=== PATIENT | female | born 1970 | race Caucasian/White ===

== ENCOUNTER 2017-09-22 10:02 | Emergency (ER) | payer OTHER, SELFPAY ==
[2017-09-22 10:03] VITALS: BP 114/68; PULSE 58; RESP 17; TEMP 36.6; O2SAT 95; BMI 28.8
--- NOTE | 2017-09-22 10:21 | EKG12_ITS ---
Test Reason : CP Blood Pressure : / mmHG Vent. Rate : 055 BPM Atrial Rate : 055 BPM P-R Int : 156 ms QRS Dur : 092 ms QT Int : 458 ms P-R-T Axes : 013 009 045 degrees QTc Int : 438 ms Sinus bradycardia Low voltage QRS (limb leads) Confirmed by ROSENDO MONTELONGO, AJQUELIN ([id number]), business editor MATILDE GLEZ ([id number]) on 09/23/2017 2:53:18 PM Referred By: CAROL
--- NOTE | 2017-09-22 10:25 | ED.DCSUM_ITS ---
- ER Visit Summary Date of Service: 09/22/17 Chief Complaint: Chest pain History of Present Illness: The patient is a 47 F who presents with chest pain that has been off and on for the past 2 days. Patient states the pain has been constant since she woke up this morning. Patient states the pain is over the left upper chest. Patient describes as a pressure. Patient does admit to some shortness of breath with the pain. Patient admits to some nausea but denies any vomiting. Patient states she did have an episode of diaphoresis yesterday. Patient admits to some palpitations and occasional lightheadedness. Patient also has a history of reflux. Patient did also have a recent trip to [place] 2 weeks ago. Patient denies any history of any blood clots or cancer. Cardiac risk factors include prediabetes and a family history of grandfather who had coronary artery disease at young age. Physical Examination: Vital signs are stable. Patient is afebrile. Patient is in no acute distress. Oral mucosa is pink and moist. Neck is supple. Trachea is midline. There is no JVD or lymphadenopathy noted. Heart was regular rate and rhythm. Lungs are clear and equal bilateral. There is good respiratory effort noted. There is some reproducible tenderness of the left upper chest wall and left upper thoracic paraspinal area. Abdomen is soft and nontender. Cranial nerves II through XII are intact. There are no focal motor or sensory deficits noted. The remaining physical exam is within normal limits. Test Results: EKG showed normal sinus rhythm with a rate of 55. There is no acute ST or T-wave changes noted. PA and lateral chest x-ray does not show any acute cardiopulmonary process. CBC, metabolic profile, troponin, d-dimer were obtained and were essentially within normal limits. Emergency Department Course and Treatment: Patient felt better on reevaluation. Patient still had some reproducible left upper chest pain on reevaluation. Patient was given a prescription for Naprosyn. Patient was instructed to follow -up with her primary care physician in 5-7 days. Patient understood and was agreeable with the plan. All questions were answered. Disposition: Discharged home Impression: Chest pain This note was generated with [employer] software. It may contain incorrect words, spelling, and punctuation that were not noted in review of the chart prior to signing ED Disposition - Plan for ED Patient: Disposition: Home or Assisted Living Chief Complaint: Chest Pain Diagnosis: Chest pain Instructions: ED Chest Pain Atypical Unkn Cause Prescriptions: Naproxen [Naprosyn] 500 mg PO BID PRN #20 tab [facility] [[facility] Provider] -
[2017-09-22 10:33] VITALS: O2SAT 97
--- NOTE | 2017-09-22 10:35 | RAD_ITS ---
STUDY: X-RAY CHEST REASON FOR EXAM: Female, 47 years old. Chest pain. TECHNIQUE: PA and lateral views of the chest. COMPARISON: January 11, 2017 FINDINGS: The lungs are clear and expanded. There is no demonstrated pleural abnormality. Normal size heart. Normal mediastinum and nita. Normal visualized pulmonary arteries. Normal visualized aortic arch and descending thoracic aorta. Normal visualized thoracic spine. Normal visualized ribs, clavicles, and shoulders. There is no demonstrated abnormality of the visualized soft tissue structures of the upper abdomen. RAD/Chest PA and Lateral IMPRESSION: No acute cardiopulmonary process. Electronically Signed: Malorie Rodriguez MD at 11:17 EDT Tel , Service support ,
[2017-09-22] MEDS: Aspirin 81 MG TAB.CHEW 324 MG PO (10:37)
[2017-09-22 10:53] LABS: Basophil# 0.01 X10^3/uL; Basophil% 0.2 % (0-1); Eosinophil# 0.12 X10^3/uL; Eosinophils% 1.9 % (0-5); Hematocrit 38.3 % (37-47); Hemoglobin 13.1 g/dl (12.0-15.0); Lymphocyte % 39.5 % (19-41); Mean Corp Hgb Conc 34.2 g/gl (32-36); Mean Corpuscular Hgb 32.1 pg (27.0-32.0); Mean Corpuscular Volume 93.9 fL (81-99); Monocyte# 0.68 X10^3/uL; Monocyte% 10.7 % (0-10); Neutrophil # 3.01 X10^3/uL (2.7-7.7); Neutrophil % 47.5 % (47-70); POSITIVE COUNT NO; POSITIVE DIFFERENTIAL NO; POSITIVE MORPHOLOGY NO; Platelet Count 419 K/mm3 (150-450); RBC Distribution Width CV 14.2 % (11.6-14.6); RBC Distribution Width SD 47.7 fl (35.1-43.9); Red Blood Count 4.08 M/mm3 (4.2-5.4); White Blood Count 6.3 K/mm3 (4.4-11.0)
[2017-09-22 11:02] VITALS: PULSE 56; O2SAT 98
--- NOTE | 2017-09-22 11:02 | NURSING ---
CHEMISTRIES AND DDIMER HEMOLIZED, PER [facility]
[2017-09-22 12:11] LABS: Anion Gap 10 (5-15); BUN 16 mg/dL (7-18); BUN/Creat Ratio 29.9 RATIO (10-20); Calcium,Total 8.7 mg/dL (8.5-10.1); Chloride 105 mmol/L (98-107); Creatinine, Serum 0.54 mg/dL (0.55-1.02); EST Glomerular Filtration Rate 131 mL/min (>60); Est Glom Filt Rate - Afr Amer 158 mL/min (>60); Estimated Creatinine Clearance 142.27 ml/min; Glucose 84 mg/dL (74-106); Potassium 3.9 mmol/L (3.5-5.1); Sodium Level 141 mmol/L (136-145)
[2017-09-22 12:13] LABS: D-Dimer Quantitative (DVT/PE) 0.39 FEU/ug/m (0.27-0.49)
[2017-09-22 13:39] VITALS: BP 105/70; PULSE 52; RESP 16; O2SAT 95
== END 2017-09-22 13:40 | disposition home or self-care (01) ==
PROVIDERS: Emergency Provider Emergency Medicine
DX: R07.89 Other chest pain (principal); R06.00 Dyspnea, unspecified; R00.2 Palpitations; R11.0 Nausea; R61 Generalized hyperhidrosis; R42 Dizziness and giddiness; F43.10 Post-traumatic stress disorder, unspecified; K21.9 Gastro-esophageal reflux disease without esophagitis; F32.9 Major depressive disorder, single episode, unspecified; F41.9 Anxiety disorder, unspecified; R73.03 Prediabetes; Z79.899 Other long term (current) drug therapy; Z79.84 Long term (current) use of oral hypoglycemic drugs; Z72.0 Tobacco use
CPT/HCPCS: 71046; 80048; 84484; 85025; 85379; 93005; 99284; A4216

== ENCOUNTER 2018-04-02 09:05 | Emergency (ER) | payer OTHER, SELFPAY ==
[2018-04-02 09:06] VITALS: BP 97/62; PULSE 78; RESP 16; TEMP 36.7; O2SAT 97; BMI 27.1
--- NOTE | 2018-04-02 09:28 | CT_ITS ---
STUDY: CT ABDOMEN AND PELVIS WITH CONTRAST REASON FOR EXAM: Female, 48 years old. Hysterectomy 5 days ago. Pelvic pain RADIATION DOSAGE (If Supplied By Facility): CTDIvol = ( 16.46 ) mGy, DLP = ( 1155.12 ) mGycm TECHNIQUE: Transaxial images were obtained from the dome of the diaphragm to the symphysis pubis with oral contrast. 100 ml of Isovue 300 contrast was administered. Sagittal and coronal images were reconstructed. Individualized dose optimization techniques were used for this CT. COMPARISON: None. FINDINGS: The visualized lung bases are unremarkable. The visualized portions of the heart are within normal limits. Normal liver. Normal gallbladder and extrahepatic biliary system. Normal spleen. Normal pancreas. Normal bilateral adrenal glands. Normal right kidney. Normal left kidney. Normal visualized stomach. Several loops of small bowel in the pelvic region demonstrate mild wall thickening. This is possibly related to postsurgical change/inflammation. No evidence of small bowel obstruction however. Loops of sigmoid colon demonstrate mild wall thickening. No evidence of obstruction. Possibly related to recent postsurgical intervention. Underlying colitis cannot be excluded. There is non-visualization of the appendix. Normal abdominal aorta. Normal inferior vena cava. Normal retroperitoneum. Normal urinary bladder. Status post recent hysterectomy. Ovaries are noted. Postsurgical inflammation and phlegmon noted in the lower pelvic region. No evidence of abscess collection. Trace pelvic free fluid. Normal abdominal wall. Normal osseous structures. CT/Abdomen/Pelvis WITH Contrast IMPRESSION: Patient has had recent hysterectomy with postsurgical changes in the lower pelvic region. No evidence of abscess collection. Trace pelvic free fluid is noted. There is some mild wall thickening of several loops of small bowel in the lower pelvic region as well as the sigmoid colon. This is possibly related to postsurgical change. No evidence of small bowel obstruction. Underlying colitis can be considered however, unlikely. Electronically Signed: Madhu Zhao DO at 11:40 EST Tel , Service support ,
--- NOTE | 2018-04-02 09:35 | ED.VISSUMM ---
- ER Visit Summary Date of Service: 04/02/18 Chief Complaint: [] Abdominal pain status post vaginal hysterectomy [place] right labial abrasion History of Present Illness: The patient is a 48 F [] vaginal hysterectomy [place] on Tuesday she has had postoperative pain ever since she indicates that the procedure was complicated by the need to use forceps to remove the uterus and also there is an abrasion to her right labia that is burning quite a bit she has been passing gas per rectum. She complains of the pelvic pain she spoke with the [facility] today and she was asked to come to the emergency department she has no other complaints no fever no cough Physical Examination: [] 100/70 General, no distress resting comfortably HEENT is generally unremarkable The neck is supple no adenopathy Cardiovascular, regular rate and rhythm Lungs, clear bilateral Abdomen, soft nontender Is a vague pain to the low pelvic area, pelvic exam with nurse home connect lpn shows one excoriated abraded right labia that extends into the vaginal vault the vaginal cuff is closed there is some scant white discharge to the vaginal vault there is no bleeding no signs of abscess or infection no odor no pain with palpation specifically over the vaginal cuff no obvious defect of the vaginal cuff Extremities, no clubbing cyanosis or edema Neurologic, awake alert answering questions appropriately moving all 4 extremities Test Results: [] Emergency Department Course and Treatment: [] All of her complaints screening labs CT pain management Patient's lab studies UA, abdominal pelvic CT with IV and oral contrast really shows nothing acute in general see those reports Back to reassess her she is able to walk to the bathroom she is feeling better we discussed inpatient versus outpatient management transfer to the [facility] etc. she is feeling better she is comfortable discharge home, I explained to the exact etiology of the pain she is having is unclear, that the labial abrasion can be treated with local antibiotic ointment skin creams etc. and she can follow-up with her physicians at the [facility] I have also explained her if she wanted to she could go directly to the [facility] would be happy to provide her with all of her test results but again she would prefer to go home and follow-up with them as an outpatient and return for change in symptoms Treatment Plan: [] Disposition: [] Home stable Impression: [] Pelvic pain, recent vaginal hysterectomy, abrasion to right labia This note was generated with ALOHAation software. It may contain incorrect words, spelling, and punctuation that were not noted in review of the chart prior to signing ED Disposition - Plan for ED Patient: Chief Complaint: Complaint [facility] [[facility] Provider] -
--- NOTE | 2018-04-02 09:38 | ED.DCSUM_ITS ---
- ER Visit Summary Date of Service: 04/02/18 Chief Complaint: [] Abdominal pain status post vaginal hysterectomy [place] right labial abrasion History of Present Illness: The patient is a 48 F [] vaginal hysterectomy [place] on Tuesday she has had postoperative pain ever since she indicates that the procedure was complicated by the need to use forceps to remove the uterus and also there is an abrasion to her right labia that is burning quite a bit she has been passing gas per rectum. She complains of the pelvic pain she spoke with the [facility] today and she was asked to come to the emergency department she has no other complaints no fever no cough Physical Examination: [] 100/70 General, no distress resting comfortably HEENT is generally unremarkable The neck is supple no adenopathy Cardiovascular, regular rate and rhythm Lungs, clear bilateral Abdomen, soft nontender Is a vague pain to the low pelvic area, pelvic exam with nurse schedule supervisor shows one excoriated abraded right labia that extends into the vaginal vault the vaginal cuff is closed there is some scant white discharge to the vaginal vault there is no bleeding no signs of abscess or infection no odor no pain with palpation specifically over the vaginal cuff no obvious defect of the vaginal cuff Extremities, no clubbing cyanosis or edema Neurologic, awake alert answering questions appropriately moving all 4 extremities Test Results: [] Emergency Department Course and Treatment: [] All of her complaints screening labs CT pain management Patient's lab studies UA, abdominal pelvic CT with IV and oral contrast really shows nothing acute in general see those reports Back to reassess her she is able to walk to the bathroom she is feeling better we discussed inpatient versus outpatient management transfer to the [facility] etc. she is feeling better she is comfortable discharge home, I explained to the exact etiology of the pain she is having is unclear, that the labial abrasion can be treated with local antibiotic ointment skin creams etc. and she can follow-up with her physicians at the [facility] I have also explained her if she wanted to she could go directly to the [facility] would be happy to provide her with all of her test results but again she would prefer to go home and follow-up with them as an outpatient and return for change in symptoms Treatment Plan: [] Disposition: [] Home stable Impression: [] Pelvic pain, recent vaginal hysterectomy, abrasion to right labia This note was generated with [employer] software. It may contain incorrect words, spelling, and punctuation that were not noted in review of the chart prior to signing ED Disposition - Plan for ED Patient: Chief Complaint: Complaint [facility] [Primary Care Provider] -
[2018-04-02] MEDS: morphine 8 MG/ML Syringe IV (09:50)
[2018-04-02] MEDS: Ondansetron 4 MG/2 ML Vial IV (09:51)
[2018-04-02 10:02] LABS: Absolute Lymphocyte Count 1.74 X10^3/ul (0.83-4.51); Absolute Neutrophil Count 6.7 X10^3/uL (2.0-7.7); Basophil# 0.01 X10^3/uL; Basophil% 0.1 % (0-1); Eosinophil# 0.11 X10^3/uL; Eosinophils% 1.2 % (0-5); Hematocrit 33.1 % (37-47); Hemoglobin 10.9 g/dl (12.0-15.0); Lymphocyte # 1.74 X10^3/ul (4.0); Lymphocyte % 18.9 % (19-41); Mean Corp Hgb Conc 32.9 g/gl (32-36); Mean Corpuscular Hgb 31.5 pg (27.0-32.0); Mean Corpuscular Volume 95.7 fL (81-99); Mean Platelet Vol. 9.6 fl (6.2-12.0); Monocyte# 0.63 X10^3/uL; Monocyte% 6.9 % (0-10); Neutrophil # 6.68 X10^3/uL (2.7-7.7); Neutrophil % 72.7 % (47-70); Platelet Count 264 K/mm3 (150-450); RBC Distribution Width SD 45.1 fl (35.1-43.9); Red Blood Count 3.46 M/mm3 (4.2-5.4); White Blood Count 9.2 K/mm3 (4.4-11.0)
[2018-04-02 10:03] LABS: POSITIVE COUNT NO; POSITIVE DIFFERENTIAL NO; POSITIVE MORPHOLOGY NO
[2018-04-02 10:18] LABS: Bacteria 0 SEEN /hpf (None Seen); Mucous, Urine 0 SEEN /hpf (<or=2+); Red Blood Cells-Urine 0 SEEN /hpf (0-5); White Blood Cells 0 SEEN /hpf (0-5)
[2018-04-02 10:48] LABS: Color, Urine Yellow (Yellow); Glucose, Dipstick Normal (Normal); Ketone-Dipstick Negative (Negative); Leukocyte Esterase-Dipstick 25 /ul (Negative); Nitrite-Dipstick Negative (Negative); Occult Blood-Urine Negative /ul (Negative); Protein-Dipstick Negative (Negative); Urine Bilirubin Dipstick Negative (Negative); Urine Clarity Clear (Clear); Urine Urobilinogen Normal (Normal)
[2018-04-02 10:56] LABS: Squamous Epithelial Cells - UA 0-5 SEEN /hpf (5-10)
[2018-04-02 11:04] LABS: Anion Gap 8 (5-15); BUN 16 mg/dL (7-18); BUN/Creat Ratio 28.8 RATIO (10-20); Calcium,Total 8.6 mg/dL (8.5-10.1); Chloride 106 mmol/L (98-107); Creatinine, Serum 0.56 mg/dL (0.55-1.02); EST Glomerular Filtration Rate 125 mL/min (>60); Est Glom Filt Rate - Afr Amer 151 mL/min (>60); Estimated Creatinine Clearance 135.74 ml/min; Glucose 113 mg/dL (74-106); Potassium 5.2 mmol/L (3.5-5.1); Sodium Level 137 mmol/L (136-145)
[2018-04-02] MEDS: 0.9% Normal Saline 1,000 ML 999 ML IV (11:27)
[2018-04-02 11:54] VITALS: PULSE 67; RESP 12; O2SAT 100
--- NOTE | 2018-04-02 12:06 | ED.DEP ---
ED Disposition - Plan for ED Patient: Chief Complaint: Complaint Instructions: ED Abdominal Pain Unkn Cause Prescriptions: Oxycodone HCl/Acetaminophen [Percocet 5/325] 1 tab PO Q6H PRN PRN 3 Days #7 tab PRN Reason: Pain [facility] [[facility]] - Additional Instructions: Follow-up with all of your outpatient providers as soon as possible [facility]
--- NOTE | 2018-04-02 12:16 | ED.DEP ---
ED Disposition - Plan for ED Patient: Chief Complaint: Complaint Instructions: ED Abdominal Pain Unkn Cause Prescriptions: Oxycodone HCl/Acetaminophen [Percocet 5/325] 1 tab PO Q6H PRN PRN 3 Days #7 tab PRN Reason: Pain Ondansetron [Zofran Odt] 4 mg PO Q8H PRN PRN #10 tab PRN Reason: Nausea [facility] [[facility]] - Additional Instructions: Follow-up with all of your outpatient providers as soon as possible [facility]
[2018-04-02 12:39] VITALS: BP 90/78; PULSE 56; RESP 16; O2SAT 99
--- NOTE | 2018-04-02 12:40 | ED.RN ---
REVIEWED D/C INSTRUCTIONS, FOLLOW UP CARE, PRESCRIPTIONS, AND S/S THAT WOULD WARRANT A RETURN TO THE ED WITH PT. PT VERBALIZED AN UNDERSTANDING AND DENIES FURTHER QUESTIONS FOR THIS RN. PT SKIN P/W/D, RESP EVEN AND UNLABORED, PT A&O X 3, NO DISTRESS NOTED. PT AMBULATED OUT OF ED, GAIT STEADY.
== END 2018-04-02 12:41 | disposition home or self-care (01) ==
PROVIDERS: Emergency Provider Emergency Medicine
DX: R10.2 Pelvic and perineal pain (principal); Z90.710 Acquired absence of both cervix and uterus; S30.814A Abrasion of vagina and vulva, initial encounter; X58.XXXA Exposure to other specified factors, initial encounter; Y93.9 Activity, unspecified; Y92.9 Unspecified place or not applicable; R30.0 Dysuria
CPT/HCPCS: 74177; 80048; 81001; 85025; 87086; 96361; 96374; 96375; 99283; J7030; J7040; Q9967; A4216; J2405

== ENCOUNTER 2018-12-29 12:42 | Emergency (ER) | payer OTHER, SELFPAY ==
[2018-12-29 12:45] VITALS: BP 101/72; PULSE 67; RESP 18; TEMP 36.6; O2SAT 96; BMI 27.3
--- NOTE | 2018-12-29 12:56 | CT_ITS ---
STUDY: CT BRAIN WITHOUT CONTRAST REASON FOR EXAM: Female, 48 years old. Severe headache and dizziness RADIATION DOSAGE (If Supplied By Facility): CTDIvol = ( 44.99 ) mGy, DLP = ( 796.11 ) mGycm TECHNIQUE: Transaxial CT imaging of the brain was performed without administration of intravenous contrast material. Individualized dose optimization techniques were used for this CT. COMPARISON: No relevant priors. FINDINGS: Normal soft tissue structures. Normal calvarium. Normal size ventricles and extra-axial spaces for the patient's age. Normal white matter tracts of the cerebral hemispheres. Normal basal ganglia and thalami. Normal brainstem. Normal cerebellum. There is no intracranial hemorrhage. There are no findings of an acute ischemic infarction. Normal visualized paranasal sinuses. CT/Brain/Head without Contrast IMPRESSION: Normal unenhanced CT scan of the brain. N.B. : The above information has been verbally conveyed by Kiko Jane MD to Dr. Archana MD, on 12/29/2018 13:32:44 (ET). Electronically Signed: Kiko Jane MD at 13:35 EDT , Service support ,
--- NOTE | 2018-12-29 13:03 | CT_ITS ---
STUDY: CTA HEAD AND NECK WITH CONTRAST REASON FOR EXAM: Female, 48 years old. Severe headache, mental status change, possible CVA RADIATION DOSAGE (If Supplied By Facility): CTDIvol = ( 19.81 ) mGy, DLP = ( 737.32 ) mGycm TECHNIQUE: CT angiography was performed with a multi-detector CT scanner. Data acquisition was obtained from the skull base through the vertex following intravenous administration of 100 IV Isovue 370. MIP images were reconstructed from the axial data set. Post-processing of the angiographic images was performed, with multiplanar reformation and 3D reconstruction. Individualized dose optimization techniques were used for this CT. COMPARISON: No relevant priors. FINDINGS: Normal bilateral petrous carotid arteries. Normal right cavernous carotid artery with a normal supraclinoid bifurcation. Normal left cavernous carotid artery with a normal supraclinoid bifurcation. Normal right A1 segments of the anterior cerebral artery. Normal left A1 segments of the anterior cerebral artery. Normal intact anterior communicating artery (ACOM). Normal bilateral A2 segments of the anterior cerebral arteries. Normal right M1 and M2 segments of the middle cerebral arteries, with a normal M1 bifurcation. Normal left M1 and M2 segments of the middle cerebral arteries, with a normal M1 bifurcation. Normal right posterior communicating artery (PCOM). Normal left posterior communicating artery (PCOM). Normal bilateral vertebral arteries. Normal basilar artery with a normal basilar bifurcation. The visualized bilateral superior cerebellar (SCA) arteries are normal. Normal bilateral P1, P2 and visualized P3 segments of the posterior cerebral arteries. There is no demonstrated aneurysm of the [place]. There is no demonstrated abnormality of the visualized brain. AORTIC ARCH: Normal visualized aortic arch. Normal origins of the brachiocephalic, left common carotid, and left subclavian arteries. RIGHT CAROTID ARTERIES: Normal right common carotid artery (CCA). Normal right common carotid bulb. Normal origin of the right internal carotid (ICA) artery without a hemodynamically significant stenosis. Normal visualized cervical portion of the right internal carotid artery. Normal origin of the right external carotid artery (ECA). LEFT CAROTID ARTERIES: Normal left common carotid artery (CCA). Normal left common carotid bulb. Normal origin of the left internal carotid (ICA) artery without a hemodynamically significant stenosis. Normal visualized cervical portion of the left internal carotid artery. Normal origin of the left external carotid artery (ECA). VERTEBRAL ARTERIES: There is enhancement within the bilateral vertebral arteries with a small right vertebral artery, and a dominant left vertebral artery. CT/CTA Head AND Neck W/ Contrast IMPRESSION: Normal CTA Head and neck with contrast. Electronically Signed: Kiko Jane MD at 13:38 EDT , Service support ,
[2018-12-29 13:10] VITALS: BP 99/45; PULSE 58; RESP 16; O2SAT 95
[2018-12-29 13:13] LABS: Absolute Lymphocyte Count 2.51 X10^3/uL (0.83-4.51); Absolute Neutrophil Count 7.6 X10^3/uL (2.0-7.7); Basophil# 0.03 X10^3/uL; Basophil% 0.3 % (0-1); Eosinophil# 0.06 X10^3/uL; Eosinophils% 0.6 % (0-5); Hematocrit 44.2 % (37-47); Hemoglobin 14.9 g/dL (12.0-15.0); Lymphocyte # 2.51 X10^3/ul (4.0); Mean Corp Hgb Conc 33.7 g/dL (32-36); Mean Corpuscular Hgb 31.7 pg (27.0-32.0); Mean Platelet Vol. 10.1 fl (6.2-12.0); Monocyte# 0.67 X10^3/uL; Monocyte% 6.1 % (0-10); NRBC Flagged by Analyzer 0 % (0-5); Neutrophil # 7.58 X10^3/uL (2.7-7.7); Neutrophil % 69.5 % (47-70); Platelet Count 331 K/mm3 (150-450); RBC Distribution Width CV 12.6 % (11.6-14.6); RBC Distribution Width SD 43.7 fl (35.1-43.9); White Blood Count 10.9 K/mm3 (4.4-11.0)
[2018-12-29 13:23] LABS: International Normalized Ratio 1.1; Prothrombin Time (Protime)PT. 13.9 SECONDS (11.7-14.9)
[2018-12-29 13:24] VITALS: BP 102/58; PULSE 55; RESP 16; O2SAT 94
[2018-12-29 13:24] LABS: Partial Thromboplast Time 25.3 Seconds (24.1-36.2)
--- NOTE | 2018-12-29 13:34 | MRI_ITS ---
STUDY: MRI BRAIN WITHOUT CONTRAST REASON FOR EXAM: Female, 48 years old. Sudden onset of headache TECHNIQUE: Standardized multiplanar fat and water weighted pulse sequences were obtained. COMPARISON: [address] head FINDINGS: Brain parenchyma is intact without focal lesions, mass effect, extra parenchymal fluid collections, hydrocephalus or herniation. Major vascular flow structures are intact. Craniocervical junction is unremarkable. MRI/Brain without Contrast IMPRESSION: 1. Unremarkable brain MRI. Electronically Signed: Angela Gunter, at 15:36 EDT Tel , Service support ,
[2018-12-29 13:35] LABS: Bedside Glucose 109 mg/dL (70-110)
[2018-12-29 13:36] LABS: Anion Gap 5 (5-15); BUN 24 mg/dL (7-18); BUN/Creat Ratio 21.6 RATIO (10-20); Calcium,Total 9.1 mg/dL (8.5-10.1); Chloride 106 mmol/L (98-107); Creatinine, Serum 1.11 mg/dL (0.55-1.02); EST Glomerular Filtration Rate 56 mL/min (>60); Est Glom Filt Rate - Afr Amer 68 mL/min (>60); Estimated Creatinine Clearance 68.48 ml/min; Glucose 113 mg/dL (74-106); Potassium 3.8 mmol/L (3.5-5.1); Sodium Level 138 mmol/L (136-145)
[2018-12-29 13:44] VITALS: BP 95/51; PULSE 55; RESP 21; O2SAT 93
[2018-12-29] MEDS: 0.9% Normal Saline 1,000 ML 999 ML IV (13:46)
[2018-12-29] MEDS: proCHLORPERazine 10 MG/2 ML Vial IV (13:48)
[2018-12-29] MEDS: Ketorolac 30 MG/ML Syringe IV (13:51)
[2018-12-29] MEDS: DiphenhydrAMINE 50 MG/ML Syringe 25 MG IV (13:51)
--- NOTE | 2018-12-29 14:53 | NURSING ---
unable to do 1400 nih d/t pt being off the floor for mri
--- NOTE | 2018-12-29 14:58 | CHAPLAIN ---
Type of Pastoral Visit _x__ Initial Visit ___ Follow-up Visit ___ On-call Visit ___ General Patient Visit ___ Spiritual Assessment ___ Family Conference ___ Bereavement ___ Rapid Response ___ Code Blue ___ Other (describe below) Pastoral Care Referral From _x__ Patient _x__ Family ___ Nurse ___ Physician ___ [employer] ___ [place] [employer] ___ Other (describe below) Sacrament/Intervention ___ Active listening ___ Anointing ___ Methodist ___ Bereavement ___ Communion ___ Ros exploration ___ ___ Life review _x__ Prayer ___ Reconciliation ___ Sacrament of Sick _x__ Supportive presence ___ Wedding ___ Other (describe below) Pastoral Comments stroke alert response; patient welcomed a prayer for support; gave presence to spouse; no other needs at this time
--- NOTE | 2018-12-29 16:03 | ED.DCSUM_ITS ---
- ER Visit Summary Date of Service: 12/29/18 Chief Complaint: Headache History of Present Illness: The patient is a 48 F with a sudden onset headache that started just prior to arrival. She felt like someone hit her in the back of the head. The pain radiates into her right neck, jaw, and right upper extre mity. She reports decreased sensation to these areas as well. She has nausea. Denies photophobia. No history of this in the past. No trauma. No blood thinners. Physical Examination: Afebrile and vital signs unremarkable. Patient appears uncomfortable. NIH stroke scale is 1. She received 1.4 decreased sensation to the right face and upper extremity. Otherwise her HEENT exam was normal. Heart regular. Lungs clear. Skin appears normal. Test Results: See below Emergency Department Course and Treatment: For sudden onset headache, a stroke team was activated. Patient had symptoms concerning for subarachnoid hemorrhage/aneurysm. She would not be a TPA candidate. Initial CT was negative. CTA was performed and was also negative. Neurology was on consultation and spoke with the patient. They felt that the imaging was normal. I spoke with radiology who also thought the imaging looked normal. Her labs were fairly unremarkable. Neurology advised MRI and treating her headache. She received Compazine, Benadryl, and Toradol. On reevaluation, she was resting comfortably. Patient will be discharged as planned. Follow-up with primary care. Return for any new or worsening issues. Treatment Plan: As above Disposition: Discharged Impression: 1. Acute cephalgia This note was generated with [employer] dictation software. It may contain incorrect words, spelling, and punctuation that were not noted in review of the chart prior to signing ED Disposition - Plan for ED Patient: [facility] [[facility] Provider] -
--- NOTE | 2018-12-29 16:06 | ED.DEP ---
ED Disposition - Plan for ED Patient: Instructions: HEADACHE, Unspecified [facility]errals[facility] [Primary Care Provider] -
[2018-12-29 16:18] VITALS: BP 111/76; PULSE 81; RESP 12; O2SAT 97
== END 2018-12-29 16:19 | disposition home or self-care (01) ==
PROVIDERS: Emergency Provider Emergency Medicine
DX: R51 Headache (principal); R11.0 Nausea; M54.2 Cervicalgia; R20.2 Paresthesia of skin; F43.10 Post-traumatic stress disorder, unspecified; E03.9 Hypothyroidism, unspecified; F32.9 Major depressive disorder, single episode, unspecified; F41.9 Anxiety disorder, unspecified; Z79.84 Long term (current) use of oral hypoglycemic drugs; Z79.899 Other long term (current) drug therapy; Z72.0 Tobacco use
CPT/HCPCS: 70450; 70496; 70498; 70551; 80048; 82962; 85025; 85610; 85730; 96361; 96374; 96375; 99284; J7030; Q9967; A4216